=== PATIENT | female | born 1955 | race Caucasian/White ===

== ENCOUNTER 2018-03-03 00:53 | Emergency (ER) | payer BC ==
[2018-03-03] MEDS ORDERED: Sodium Chloride 0.9% 1,000 ML IV ONE (01:05)
[2018-03-03] MEDS ORDERED: Ondansetron 4 MG/2 ML SDV IVPUSH ONE (01:05)
[2018-03-03] MEDS ORDERED: Ketorolac 30 MG/ML SDV IVPUSH ONE (01:05)
[2018-03-03] MEDS ORDERED: Pantoprazole 40 MG Vial IVPUSH ONE (01:06)
--- NOTE | 2018-03-03 01:06 | EDM.PDOC ---
ED HPI GENERAL MEDICAL PROBLEM - General Stated Complaint: UPPER STOMACH PAIN Time Seen by Provider: 03/03/18 01:05 Source of Information: Reports: Patient - History of Present Illness INITIAL COMMENTS - FREE TEXT/NARRATIVE: HISTORY AND PHYSICAL: History of present illness: [Patient presents with 8 out of 10 right upper quadrant pain began while she was sleeping, patient had similar pain 2 weeks prior was not as severe and did not last as long Patient ate a salad wrap for supper tonight between 5 and 6 PM pain been began while sleeping at 11 PM she describes as throbbing ache radiating to the right shoulder No fever nausea vomiting diarrhea constipation chest pain shortness breath headache dizziness palpitation about a urine symptoms] Review of systems: As per history of present illness and below otherwise all systems reviewed and negative. Past medical history: As per history of present illness and as reviewed below otherwise noncontributory. Surgical history: As per history of present illness and as reviewed below otherwise noncontributory. Social history: No reported history of drug or alcohol abuse. Family history: As per history of present illness and as reviewed below otherwise noncontributory. Physical exam: HEENT: Atraumatic, normocephalic, pupils reactive, negative for conjunctival pallor or scleral icterus, mucous membranes moist, throat clear, neck supple, nontender, trachea midline. Lungs: Clear to auscultation, breath sounds equal bilaterally, chest nontender. Heart: S1S2, regular, negative for clicks, rubs, or JVD. Abdomen: Soft, nondistended, nontender. Negative for masses or hepatosplenomegaly. Negative for costovertebral tenderness. Pelvis: Stable nontender. Genitourinary: Deferred. Rectal: Deferred. Extremities: Atraumatic, negative for cords or calf pain. Neurovascular unremarkable. Neuro: Awake, alert, oriented. Cranial nerves II through XII unremarkable. Cerebellum unremarkable. Motor and sensory unremarkable throughout. Exam nonfocal. Diagnostics: [CBC CMP UA troponin lipase ]CT abdomen without contrast Therapeutics: [1 L normal saline bolus Zofran 8 mg IV Toradol 30 mg IV Proton X 80 mg IV ] Follow-up with primary care on return home to [place] on Monday as discussed as needed to be referred to a general surgeon, I'll provide a referral for general surgery here as well Toradol Zofran Impression: [ abdominal pain -resolved with above Cholelithiasis Definitive disposition and diagnosis as appropriate pending reevaluation and review of above. Right Upper Abdomen Pain Score (Numeric/FACES): 8 - Related Data Allergies Allergy/AdvReac Type Severity Reaction Status Date / Time codeine Allergy Shortness Verified 03/03/18 01:27 of Breath ibuprofen Allergy Shortness Verified 03/03/18 01:27 of Breath Home Meds: Home Meds Albuterol Sulfate [Proair Hfa] 8.5 gm IH 03/03/18 [History] Cholecalciferol (Vitamin D3) [Vitamin D] PO DAILY 03/03/18 [History] Fluticasone Propionate [Flovent] INH DAILY 03/03/18 [History] Hydrochlorothiazide mg PO DAILY 03/03/18 [History] Levothyroxine mcg PO ACBREAKFAST 03/03/18 [History] Multivitamin/Iron/Folic Acid [Centrum Complete Multivit] 1 tab PO DAILY [History] Vitamin E PO DAILY 03/03/18 [History] ED ROS GENERAL - Review of Systems Review Of Systems: See Below ED EXAM, GENERAL - Physical Exam Exam: See Below Course - Vital Signs Last Recorded V/S: Last Vital Signs Temp 98.2 F 03/03/18 01:07 Pulse 93 03/03/18 01:07 Resp 16 03/03/18 01:07 BP 146/83 H 03/03/18 01:07 Pulse Ox 93 L 03/03/18 01:07 - Orders/Labs/Meds Orders: Active Orders 24 hr Category Date Time Status EKG Documentation Completion [RC] STAT Care 03/03/18 01:05 Active Abdomen Pelvis wo Cont [CT] Stat Exams 03/03/18 01:17 Taken UA W/MICROSCOPIC [URIN] Stat Lab 03/03/18 01:30 Ordered Labs: Laboratory Tests 03/03/18 03/03/18 03/03/18 Range/Units 01:20 01:20 01:30 WBC 10.09 (4.0-11.0) K/uL RBC 4.72 (4.30-5.90) M/uL Hgb 14.2 (12.0-16.0) g/dL Hct 45.1 (36.0-46.0) % MCV 95.6 (80.0-98.0) fL MCH 30.1 (27.0-32.0) pg MCHC 31.5 (31.0-37.0) g/dL RDW Std Deviation 46.2 (28.0-62.0) fl RDW Coeff of Jamarcus 14 (11.0-15.0) % Plt Count 234 (150-400) K/uL MPV 11.20 (7.40-12.00) fL Neut % (Auto) 61.2 (48.0-80.0) % Lymph % (Auto) 30.3 (16.0-40.0) % [place] % (Auto) 5.9 (0.0-15.0) % Eos % (Auto) 2.2 (0.0-7.0) % Baso % (Auto) 0.4 (0.0-1.5) % Neut # (Auto) 6.2 H (1.4-5.7) K/uL Lymph # (Auto) 3.1 H (0.6-2.4) K/uL [place] # (Auto) 0.6 (0.0-0.8) K/uL Eos # (Auto) 0.2 (0.0-0.7) K/uL Baso # (Auto) 0.0 (0.0-0.1) K/uL Sodium 141 (136-145) mmol/L Potassium 3.8 (3.5-5.1) mmol/L Chloride 104 (98-107) mmol/L Carbon Dioxide 31.0 (21.0-32.0) mmol/L BUN 21 H (7.0-18.0) mg/dL Creatinine 1.2 H (0.6-1.0) mg/dL Est Cr Clr Drug Dosing 44.92 mL/min Estimated GFR (MDRD) 45.4 ml/min Glucose 154 H (74-106) mg/dL Calcium 9.0 (8.5-10.1) mg/dL Total Bilirubin 0.4 (0.2-1.0) mg/dL AST 47 H (15-37) IU/L ALT 57 (14-63) IU/L Alkaline Phosphatase 121 H (46-116) U/L Troponin I < 0.050 (0.000-0.056) ng/mL Total Protein 7.9 (6.4-8.2) g/dL Albumin 3.6 (3.4-5.0) g/dL Globulin 4.3 H (2.0-3.5) g/dL Albumin/Globulin Ratio 0.8 L (1.3-2.8) Lipase 123 (73-393) U/L Urine Color YELLOW Urine Appearance HAZY Urine pH 6.5 (5.0-8.0) Ur Specific Dante 1.020 (1.001-1.035) Urine Protein NEGATIVE (NEGATIVE) mg/dL Urine Glucose (UA) NEGATIVE (NEGATIVE) mg/dL Urine Ketones NEGATIVE (NEGATIVE) mg/dL Urine Occult Blood NEGATIVE (NEGATIVE) Urine Nitrite NEGATIVE (NEGATIVE) Urine Bilirubin NEGATIVE (NEGATIVE) Urine Urobilinogen 0.2 (<2.0) EU/dL Ur Leukocyte Esterase NEGATIVE (NEGATIVE) Urine RBC 1-2 (0-2/HPF) Urine WBC 0-2 (0-5/HPF) Ur Epithelial Cells MODERATE (NONE-FEW) Urine Bacteria FEW (NEGATIVE) Meds: Medications Discontinued Medications Generic Name Dose Route Start Last Admin Trade Name Safia PRN Reason Stop Dose Admin Sodium Chloride 1,000 mls @ 999 mls/hr 03/03/18 01:05 03/03/18 01:28 Normal Saline IV 03/03/18 02:05 999 mls/hr STAT ONE Administration Ketorolac Tromethamine 30 mg 03/03/18 01:05 03/03/18 01:29 Toradol IVPUSH 03/03/18 01:06 30 mg ONETIME ONE Administration Ondansetron HCl 8 mg 03/03/18 01:05 03/03/18 01:30 Zofran IVPUSH 03/03/18 01:06 8 mg ONETIME ONE Administration Pantoprazole Sodium 80 mg 03/03/18 01:06 03/03/18 01:30 Protonix Iv IVPUSH 03/03/18 01:07 80 mg .BOLUS ONE Administration Departure - Departure Time of Disposition: 03:00 Disposition: Home, Self-Care 01 Condition: Good Clinical Impression: Abdominal pain, Cholelithiasis - Discharge Information Referrals: PCP,None [Primary Care Provider] - Additional Instructions: Doland diet as discussed Follow-up with general surgery next week, you had mentioned he'll be returning home to [place] on Monday and have a primary that can make arrangements there If you do end up staying in [place] longer our general surgeons office contact information is provided below Return if symptoms persist or new concerning symptoms develop [facility] - General Surgery Professional [address], [address] [place] [address] The following information is given to patients seen in the emergency department who are being discharged to home. This information is to outline your options for follow-up care. We provide all patients seen in our emergency department with a follow-up referral. The need for follow-up, as well as the timing and circumstances, are variable depending upon the specifics of your emergency department visit. If you don't have a primary care physician on staff, we will provide you with a referral. We always advise you to contact your personal physician following an emergency department visit to inform them of the circumstance of the visit and for follow-up with them and/or the need for any referrals to a consulting specialist. The emergency department will also refer you to a specialist when appropriate. This referral assures that you have the opportunity for follow-up care with a specialist. All of these measure are taken in an effort to provide you with optimal care, which includes your follow-up. Under all circumstances we always encourage you to contact your private physician who remains a resource for coordinating your care. When calling for follow-up care, please make the office aware that this follow-up is from your recent emergency room visit. If for any reason you are refused follow-up, please contact the [facility] emergency department at and asked to speak to the emergency department charge nurse. - My Orders Last 24 Hours: My Active Orders 03/03/18 01:05 EKG Documentation Completion [RC] STAT 03/03/18 01:17 Abdomen Pelvis wo Cont [CT] Stat 03/03/18 01:30 UA W/MICROSCOPIC [URIN] Stat - Assessment/Plan Last 24 Hours: My Active Orders 03/03/18 01:05 EKG Documentation Completion [RC] STAT 03/03/18 01:17 Abdomen Pelvis wo Cont [CT] Stat 03/03/18 01:30 UA W/MICROSCOPIC [URIN] Stat
[2018-03-03 01:53] LABS: CHLORIDE,CL 104 mmol/L (98-107); SODIUM,NA 141 mmol/L (136-145)
--- NOTE | 2018-03-05 11:41 | CT ---
EXAM DATE: 03/03/18 PATIENT'S AGE: 62 Patient: SIMONA SEGURA Facility: [place], [place] Site . Site : [id number] Study: CT Abdomen/Pelvis W/O [id number]/26/2018 2:26:25 AM Ordering Physician: Neo Hayden Final Report: INDICATION: Right upper quadrant pain TECHNIQUE: CT abdomen and pelvis without contrast. COMPARISON: None available FINDINGS: Lower chest: Unremarkable. Liver: Hepatic steatosis. Spleen: Unremarkable. Pancreas: Unremarkable. Gallbladder and bile ducts: Cholelithiasis. Trace stranding adjacent to the gallbladder, however the gallbladder is not distended Adrenal glands: Unremarkable. Kidneys: Unremarkable. No kidney or ureteral stones and no hydronephrosis. GI tract: No bowel obstruction. A normal appendix. Scattered left colonic diverticula without diverticulitis. Vascular structures: Mild atherosclerotic changes. Lymph nodes: Unremarkable. Miscellaneous: No free fluid or free air. The small fat containing umbilical hernia. Pelvic Organs: Unremarkable. Bones: Sclerotic foci in the posterior left ilium and left ischium, nonspecific. Degenerative changes in the spine. IMPRESSION: No evidence of appendicitis, diverticulitis or bowel obstruction. No obstructive uropathy. Cholelithiasis. Trace stranding adjacent to the gallbladder, however the gallbladder is not distended. Correlate clinically and consider sonographic evaluation. Hepatic steatosis. Dictated by Murphy Price MD @ 03/03/2018 2:52:35 AM Please note that all CT scans at this facility use dose modulation, iterative reconstruction, and/or weight-based dosing when appropriate to reduce radiation dose to as low as reasonably achievable. Dictated by: Murphy Price MD @ 03/03/2018 02:52:41 (Electronic Signature) Report Signed by Proxy. [facility]Young
== END 2018-03-03 03:27 | disposition home or self-care (01) ==
LOC: MW.ED 00:53
DX: K80.20 Calculus of gallbladder without cholecystitis without obstruction (principal); Z88.5 Allergy status to narcotic agent; Z88.6 Allergy status to analgesic agent; Z79.899 Other long term (current) drug therapy
CPT/HCPCS: 36415; 74176; 80053; 81001; 83690; 84484; 85025; 93005; 96361; 96374; 96375; 99284; C9113; J2405; J7040; J1885